=== PATIENT | female | born 1960 | race Caucasian/White ===

== ENCOUNTER 2017-05-05 18:33 | Observation (INO) ==
[2017-05-05] MEDS ORDERED: *HR* OxyCODONE/APAP 5/325 TABLET PO ONE (19:26)
[2017-05-05] MEDS ORDERED: Aspirin 81 MG TAB.CHEW PO STA (19:31)
--- NOTE | 2017-05-05 19:57 | Emergency Department Note ---
Disposition Clinical Impression: Palpitations, Bigeminy Disposition: Admitted As Inpatient Condition: Fair Referrals: Blanquita Mckeon CNP [Primary Care Provider] - Forms: ED Satisfaction Letter Time of Disposition: 20:59 Arrhythmia/Palpitations HPI - General Chief Complaint: ED Arrhythmia/Palpitations Stated Complaint: irregular heatbeat Time Seen by Provider: 05/05/17 18:48 Source: patient, family Limitations: no limitations Nursing Notes Reviewed: Yes Vital Signs Reviewed: Yes - History of Present Illness HPI Narrative: 57-year-old female history of hypertension, hyperlipidemia, diabetes, recent pneumonia and urinary tract infection, presents after an episode of palpitations , her home health nurse found her in to be an irregular rhythm. EMS brought her in state that she is in bigeminy. Patient reports some lightheadedness, but she denies any chest pain, shortness of breath. Patient states that she is recently completed her antibiotics for urinary tract infection. She also recent right ankle fracture. It is in a ankle brace. Patient denies hemoptysis , leg swelling, she denies history of pulmonary embolus Pt Subjective Complaint: rapid heart beat, "skipped beats" Onset (ago): unknown Duration: intermittent Severity: mild Context: occurred during rest Arrhythmia History: other (Tachycardia) Associated symptoms: Denies: denies other symptoms, chest pain, shortness of breath, anxiety, diaphoresis - Related Data Allergies Allergy/AdvReac Type Severity Reaction Status Date / Time Latex, Natural Rubber Allergy Rash Verified 10/29/16 14:44 metronidazole [From Flagyl] Allergy Rash Verified 05/05/17 19:54 vancomycin Allergy Swelling Verified 05/05/17 19:54 of the Eye Zolpidem [From Ambien] Allergy Hives Verified 10/29/16 14:44 All systems ED: reviewed and negative except as stated. Review of Systems: As Per HPI Constitutional: Denies: fever, chills Eyes: Denies: eye pain ENT ED: Denies: ear pain Cardiovascular: Reports: as per HPI, palpitations. Denies: chest pain, dyspnea on exertion, paroxysmal nocturnal dyspnea Respiratory: Denies: cough, dyspnea Gastrointestinal: Denies: abdominal pain, nausea Genitourinary: Denies: urgency, dysuria Musculoskeletal: Denies: back pain, neck pain Integumentary: Denies: rash, abrasion Neurological: Denies: headache, weakness Past Medical History - Past Medical History Attestation: Yes The following information was validated with the patient. Medical history: Reports: COPD, diabetes, GERD, hyperlipidemia, hypertension Psychiatric history: Reports: depression - Social History Smoking Status: Current every day smoker Smokeless Tobacco Status: No Alcohol use: Reports: none Drug use: Reports: none Physical Exam Constitutional: NAD,HTN, Eyes: PERRLA, sclera anicteric ENT & Mouth: MM dry Neck: normal inspection, neck is supple Resp: CTA bilaterally, no resp distress CV: irregular rhythm GI: normal inspection, soft, no guarding or rigidity Neuro: A&O3, CNII-XII grossly intact, COVARRUBIAS MSK: Right ankle in brace, no pedal edema, good ROM left Lower extremity Skin: on limited exam, skin intact with no rashes or lesions - General Limitations: no limitations General appearance: alert Course Course Narrative: 57-year-old female with what appears to be bigeminy on her EKG no other ischemic changes, will get CBC BMP troponin likely admission for irregular rhythm. - Reevaluation(s) Reevaluation #1: Patient's troponin was negative given age and risk factors, admitted to the hospitalist service Dr Pink Time: 21:00 Vital Signs Temperature 98.9 F 05/05/17 18:42 Pulse Rate 68 05/05/17 18:42 Respiratory Rate 20 05/05/17 18:42 Blood Pressure 182/81 05/05/17 18:42 O2 Sat by Pulse Oximetry 94 05/05/17 18:42 Temperature 98.9 F 05/05/17 18:42 Pulse Rate 68 05/05/17 18:42 Respiratory Rate 20 05/05/17 18:42 Blood Pressure 182/81 05/05/17 18:42 O2 Sat by Pulse Oximetry 97 05/05/17 18:57 Oxygen Delivery Oxygen Delivery Room Air Arrhythmia/Palpitations - Differential Diagnosis Differential Diagnosis: Likely: palpitations, anxiety, ventricular premature beats - Medical Records Medical records reviewed: Yes I reviewed the patient's medical records. - Lab Data Lab results reviewed: Yes I reviewed the patient's lab results. Result diagrams: 05/05/17 19:39 05/05/17 19:39 Lab Results 05/05/17 05/05/17 05/05/17 Range/Units 19:39 19:39 19:39 WBC 9.1 (4.3-11.1) K/mcL RBC 4.20 (3.82-4.97) M/mcL Hgb 12.8 (11.5-15.4) g/dL Hct 38.5 (35.3-44.9) % MCV 91.7 (83.0-100.0) fL MCH 30.5 (28.0-33.3) pg MCHC 33.2 (31.6-35.5) g/dL RDW 12.3 (11.5-14.5) % Plt Count 246 (140-400) K/mcL MPV 11.1 (9.4-12.4) fL Immature Gran % 0.7 (0-4) % Seg Neutrophils % 47.2 % Lymphocytes % 42.3 % Monocytes % 9.0 % Eosinophils % 0.1 % Basophils % 0.7 % Neutrophils # 4.3 (1.6-8.9) K/mcL Lymphocytes # 3.8 (0.6-4.6) K/mcL Monocytes # 0.8 (0.0-1.3) K/mcL Eosinophils # 0.0 (0.0-0.6) K/mcL Basophils # 0.1 (0.0-0.2) K/mcL PT 12.2 H (9.4-12.1) Seconds INR 1.1 APTT 35.9 (26.0-36.0) Seconds Sodium 137 (136-145) mEq/L Potassium 3.5 (3.5-5.1) mEq/L Chloride 107 (98-107) mEq/L Carbon Dioxide 24 (23-29) mEq/L BUN 12 (6-20) mg/dL Creatinine 0.66 (0.60-1.20) mg/dL Est GFR ( Amer) > 60 (> 60) Est GFR (Non-Af Amer) > 60 (> 60) BUN/Creatinine Ratio 18 (6-26) Glucose 94 (70-105) mg/dL Calculated Osmolality 284 (280-300) Calcium 8.5 L (8.6-10.3) mg/dL Magnesium 1.2 L (1.6-2.6) mg/dL Total Bilirubin 0.2 L (0.3-1.0) mg/dL AST 12 L (13-39) Units/L ALT 10 (7-52) Units/L Alkaline Phosphatase 78 (34-104) Units/L Troponin I (< 0.04) ng/mL Serum Total Protein 5.9 L (6.4-8.9) g/dL Albumin 3.4 L (3.5-5.7) g/dL Globulin 2.5 (2.4-3.5) g/dL Albumin/Globulin Ratio 1.4 (1.1-2.2) 05/05/17 Range/Units 19:39 WBC (4.3-11.1) K/mcL RBC (3.82-4.97) M/mcL Hgb (11.5-15.4) g/dL Hct (35.3-44.9) % MCV (83.0-100.0) fL MCH (28.0-33.3) pg MCHC (31.6-35.5) g/dL RDW (11.5-14.5) % Plt Count (140-400) K/mcL MPV (9.4-12.4) fL Immature Gran % (0-4) % Seg Neutrophils % % Lymphocytes % % Monocytes % % Eosinophils % % Basophils % % Neutrophils # (1.6-8.9) K/mcL Lymphocytes # (0.6-4.6) K/mcL Monocytes # (0.0-1.3) K/mcL Eosinophils # (0.0-0.6) K/mcL Basophils # (0.0-0.2) K/mcL PT (9.4-12.1) Seconds INR APTT (26.0-36.0) Seconds Sodium (136-145) mEq/L Potassium (3.5-5.1) mEq/L Chloride (98-107) mEq/L Carbon Dioxide (23-29) mEq/L BUN (6-20) mg/dL Creatinine (0.60-1.20) mg/dL Est GFR ( Amer) (> 60) Est GFR (Non-Af Amer) (> 60) BUN/Creatinine Ratio (6-26) Glucose (70-105) mg/dL Calculated Osmolality (280-300) Calcium (8.6-10.3) mg/dL Magnesium (1.6-2.6) mg/dL Total Bilirubin (0.3-1.0) mg/dL AST (13-39) Units/L ALT (7-52) Units/L Alkaline Phosphatase (34-104) Units/L Troponin I < 0.03 (< 0.04) ng/mL Serum Total Protein (6.4-8.9) g/dL Albumin (3.5-5.7) g/dL Globulin (2.4-3.5) g/dL Albumin/Globulin Ratio (1.1-2.2) - Radiology Data Radiology results reviewed: Yes I reviewed the patient's radiology results. Chest X-Ray 05/05/17 19:12 IMPRESSION: No acute process. D/ / Ilan Harris MD / Ilan Harris MD Interpreting Provider: Ilan Harris MD - EKG Data EKG attestation: Yes I reviewed and interpreted this EKG. EKG shows normal: sinus rhythm Rate: normal (Rhythm of 84, bigeminy, intermittent PVCs every other beat.) Rhythm: PVC's Interpretation: nonspecific ST-T wave changes - Core Measures AMI Core Measures Followed: Yes Attestation Statement - Attestation Attestation: I, Peter Olivo DO, examined this patient [id number] and my medical decision-making was reviewed with Dr. Aly Dodson, Resident Physician. I agree with the documented findings, disposition and treatment plan as described except to the extent set forth below. Please see my progress notes for details. Patient presents emergency room for evaluation of palpitations. She was just discharged from an outside facility for treatment of pneumonia. She denies any new medications or changes in medications over the last several days. Patient denies any trauma or injury. Patient denies any chest pain at this time no nausea vomiting or diarrhea. No fevers or chills. No chest pain shortness of breath headache or vision changes. Her main complaint is palpitations. Patient is resting comfortably in bed at this time. EKG shows what appears to be bigeminy. There is a caddo beat that is directly followed by ventricular premature complex. Patient will be evaluated for left foot abnormality infectious pathology and then admission process will be completed. No other acute issues noted at this time. I asked him to be given. Patient has multiple comorbidities including hypertension hyperlipidemia COPD and acid reflux along with diabetes. Vital signs otherwise are unremarkable in presentation except for hypertension. Patient is otherwise stable. No critical care part of this patient during the treatment course. See detailed documentation of physical exam, medical intervention, medical decision-making and disposition resident physician's note. 2039 Patient found to have negative workup at this time labs are otherwise unremarkable. Bigeminy has been persistent with unknown etiology. Patient will be admitted to the hospital at this time for definitive management of unknown etiology to her cardiac arrhythmia.
[2017-05-05 20:07] LABS: Basophils # 0.1 K/mcL (0.0-0.2); Basophils % 0.7 %; Eosinophils % 0.1 %; Hematocrit 38.5 % (35.3-44.9); Hemoglobin 12.8 g/dL (11.5-15.4); Immature Granulocytes % 0.7 % (0-4); Lymphocytes # 3.8 K/mcL (0.6-4.6); Lymphocytes % 42.3 %; Mean Corpuscular HGB Conc 33.2 g/dL (31.6-35.5); Mean Corpuscular Hemoglobin 30.5 pg (28.0-33.3); Mean Corpuscular Volume 91.7 fL (83.0-100.0); Mean Platelet Volume 11.1 fL (9.4-12.4); Monocytes # 0.8 K/mcL (0.0-1.3); Neutrophils # 4.3 K/mcL (1.6-8.9); Platelet Count 246 K/mcL (140-400); Red Cell Distribution Width 12.3 % (11.5-14.5); Segmented Neutrophils % 47.2 %
[2017-05-05 20:16] LABS: INR 1.1; Prothrombin Time 12.2 Seconds (9.4-12.1)
[2017-05-05 20:19] LABS: Activated Partial Thrombo Time 35.9 Seconds (26.0-36.0)
[2017-05-05 20:20] LABS: Alanine Aminotransferase 10 Units/L (7-52); Albumin 3.4 g/dL (3.5-5.7); Albumin/Globulin Ratio 1.4 (1.1-2.2); Alkaline Phosphatase 78 Units/L (34-104); Aspartate Amino Transferase 12 Units/L (13-39); BUN/Creatinine Ratio 18 (6-26); Bilirubin,Total 0.2 mg/dL (0.3-1.0); Blood Urea Nitrogen 12 mg/dL (6-20); Calcium 8.5 mg/dL (8.6-10.3); Carbon Dioxide 24 mEq/L (23-29); Chloride 107 mEq/L (98-107); Globulin 2.5 g/dL (2.4-3.5); Glucose 94 mg/dL (70-105); Magnesium 1.2 mg/dL (1.6-2.6); Osmolality,Calculated 284 (280-300); Potassium 3.5 mEq/L (3.5-5.1); Sodium 137 mEq/L (136-145); Total Protein 5.9 g/dL (6.4-8.9); eGFR For African Americans > 60 (> 60); eGFR For Non-African Americans > 60 (> 60)
[2017-05-05 20:44] LABS: Bilirubin,Urine Negative (Negative); Blood,Urine Trace (Negative); Clarity,Urine Clear (Clear); Color,Urine Yellow (Yellow); Glucose,Urine (UA) Normal (Normal); Ketones,Urine Negative (Negative); Leukocyte Esterase,Urine Negative (Negative); Nitrite,Urine Negative (Negative); PH,Urine 6.5 pH Units (5.0-8.0); Protein,Urine Negative (Neg-Trace); Specific Gravity,Urine 1.009 (1.010-1.025); Urobilinogen,Urine Normal (Normal)
[2017-05-05 20:46] LABS: Bacteria,Urine None Seen per hpf (None-Few); Hyaline Casts,Urine None Seen per lpf (None-Few); RBC,Urine 0-3 per hpf (0-3); Squamous Epithelial Cell,Urine Many per lpf (None-Few); WBC,Urine 0-3 per hpf (0-3)
[2017-05-05 20:53] LABS: Thyroid Stimulating Hormone 2.015 mcIU/mL (0.340-5.600)
[2017-05-05] MEDS ORDERED: Naloxone 0.4 MG/ML INJ IVP PRN (23:41)
[2017-05-05] MEDS ORDERED: Ondansetron ODT 4 MG TAB.RAPDIS SL PRN (23:41)
[2017-05-05] MEDS ORDERED: Acetaminophen 325 MG TABLET PO PRN (23:41)
[2017-05-05] MEDS ORDERED: NON-FORMULARY MEDICATION 1 EACH EACH (Oxygen [Oxygen] 2 L) NS SCH (23:45)
[2017-05-05] MEDS ORDERED: *HR* Metformin 500 MG TABLET PO SCH (23:45)
[2017-05-06] MEDS ORDERED: D5% in Water 1,000 ML IVC PRN (00:48)
[2017-05-06] MEDS ORDERED: Dextrose Gel 15 GM PO PRN ×2 (00:48)
[2017-05-06] MEDS ORDERED: *HR* Dextrose 50 % in Water (Syg) 50 ML SYRINGE IVP PRN (00:48)
[2017-05-06] MEDS: *HR* Heparin 5,000 UNIT/ML VIAL SQ SCH ×4 (01:00→22:41)
[2017-05-06] MEDS: Melatonin 3 MG TABLET PO SCH ×2 (01:02→22:41)
[2017-05-06] MEDS: (Anoro Ellipta 62.5-2) IH SCH ×2 (01:02→08:55)
[2017-05-06] MEDS: (Liraglutide [Victoza 2-Pak] 1.2 MG) SQ SCH ×2 (01:02→08:55)
[2017-05-06] MEDS: Gabapentin 400 MG CAPSULE PO SCH ×5 (01:02→22:41)
[2017-05-06] MEDS: *HR* HYDROcodone/Acet 5/325 mg TABLET PO PRN ×3 (01:02→11:46)
[2017-05-06] MEDS: Insulin LISPRO 300 UNITS/3 ML VIAL SQ SCH ×5 (01:11→22:42)
[2017-05-06 03:38] LABS: Basophils # 0.1 K/mcL (0.0-0.2); Basophils % 0.7 %; Hematocrit 39.3 % (35.3-44.9); Hemoglobin 12.8 g/dL (11.5-15.4); Immature Granulocytes % 0.7 % (0-4); Lymphocytes # 3.5 K/mcL (0.6-4.6); Lymphocytes % 43.8 %; Mean Corpuscular HGB Conc 32.6 g/dL (31.6-35.5); Mean Corpuscular Hemoglobin 30.1 pg (28.0-33.3); Mean Corpuscular Volume 92.5 fL (83.0-100.0); Mean Platelet Volume 11.2 fL (9.4-12.4); Monocytes # 0.7 K/mcL (0.0-1.3); Monocytes % 8.5 %; Neutrophils # 3.7 K/mcL (1.6-8.9); Platelet Count 214 K/mcL (140-400); Red Blood Count 4.25 M/mcL (3.82-4.97); Red Cell Distribution Width 12.3 % (11.5-14.5); Segmented Neutrophils % 46.3 %
[2017-05-06 03:46] LABS: Hemoglobin A1C 5.9 %
[2017-05-06 04:08] LABS: BUN/Creatinine Ratio 14 (6-26); Blood Urea Nitrogen 10 mg/dL (6-20); Calcium 8.5 mg/dL (8.6-10.3); Carbon Dioxide 26 mEq/L (23-29); Chloride 108 mEq/L (98-107); Glucose 134 mg/dL (70-105); Magnesium 1.2 mg/dL (1.6-2.6); Osmolality,Calculated 297 (280-300); Potassium 3.6 mEq/L (3.5-5.1); Sodium 143 mEq/L (136-145); eGFR For African Americans > 60 (> 60); eGFR For Non-African Americans > 60 (> 60)
--- NOTE | 2017-05-06 05:11 | Event Note ---
Date of Encounter: 05/06/17 Time of Encounter: 05:07 I examined this patient and my medical decision-making was reviewed with the Resident Physician. I agree with the documented findings, disposition and treatment plan as described except to the extent set forth below: 57 year old female recently treated for pneumonia presented for palpitations. She denies any chest pain, shortness of breath, n/v, diaphoresis. She drinks 1- 2 soda beverages, no coffee, is tobacco user but has not smoked recently because of recent pneumonia. Chest x-ray showed no acute process. EKG showed sinus rhythm with bigemini at normal rate without ST/T wave changes. She is already on metoprolol 50 mg BID at home for palpitations. She denies anxiety. Telemetry monitoring currently shows patient sinus with bigemini at 70 bpm. TSH checked and is within normal limits. Follow-up with echocardiogram.
--- NOTE | 2017-05-06 06:46 | Internal Med History&Physical ---
<Chico Joshua - Last Filed: 05/06/17 07:36> Date of Encounter: 05/06/17 Time of Encounter: 03:00 Assessment and Plan (1) Bigeminy Current visit: Yes Status: Acute Pt asymptomatic. Incidentally found by home health aide, no past workup. No recent stimulant use. Recent PNA/UTI, however s/p complete abx regimen. No recent respiratory distress. Chronicity unknown. Limited echo ordered. On telemetry. Continue metoprolol. (2) Type 2 diabetes mellitus Current visit: Yes Status: Acute Type 2 DM well controlled on Victoza, Metformin. On SSI in-patient. Qualifiers: Diabetes mellitus complication status: without complication Diabetes mellitus care home insulin use: without terminal operations supervisor use Qualified Code(s): E11.9 - Type 2 diabetes mellitus without complications (3) DVT prophylaxis Current visit: Yes Status: Acute SQ Heparin Internal Medicine - H&P: HPI Chief complaint: Palpitations Admitted From: Home Plans for Post Hospital Care: Home History of present illness: Ms. Gomez is a 57 year old female H DM2, who presents with 1 day onset of incidental finding of irregular rhythm by home health aid. Patient was recently treated for PNA/UTI at [place]. Pt reports no telemetry or ECG performed to her knowledge there. Pt currently feels asymptomatic, denying dizziness, syncope, or the sensation of palpitations. No recent stimulant, caffeine intake. ECG shows bigeminy, no ST elevation/depression. Past Med Surg Social Fam HX - Past Medical History Medical history: COPD, diabetes, GERD, hyperlipidemia, hypertension Psychiatric history: depression - Social History Smoking Status: Current every day smoker Smokeless Tobacco Status: No Alcohol use: none Drug use: none Internal Medicine - H&P: Meds Albuterol Sulfate [Proair Hfa] 2 puff IH Q4H PRN 05/05/17 [History] Aspirin Enteric Coated [Aspirin EC] 325 mg PO DAILY 05/05/17 [History] Celecoxib [Celebrex] 200 mg PO DAILY 05/05/17 [History] Cholecalciferol (D-3) [Vitamin D] 5,000 unit PO DAILY 05/05/17 [History] Dicyclomine [Bentyl] 20 mg PO QID 05/05/17 [History] Escitalopram [Lexapro] 10 mg PO DAILY 05/05/17 [History] Esomeprazole Magnesium [Nexium] 40 mg PO DAILY 05/05/17 [History] Estradiol [Estrace] 1 appl VG AD 05/05/17 [History] Famotidine [Heartburn Prevention] 20 mg PO HS 05/05/17 [History] Furosemide [Lasix] 20 mg PO DAILY 05/05/17 [History] Gabapentin [Neurontin] 800 mg PO QID 05/05/17 [History] Liraglutide [Victoza 2-Sky] 1.2 mg SQ DAILY 05/05/17 [History] Lisinopril/Hydrochlorothiazide [Zestoretic 10-12.5 mg Tablet] 1 each PO DAILY [History] Loratadine [Claritin] 10 mg PO DAILY 05/05/17 [History] Melatonin 5 mg PO HS 05/05/17 [History] Metformin HCl [Metformin HCl ER] 1,000 mg PO BID 05/05/17 [History] Metoprolol [Lopressor] 50 mg PO BID 05/05/17 [History] Oxycodone HCl/Acetaminophen [Percocet 7.5-325 mg Tablet] 1 each PO Q8H PRN 05/05 [History] Oxygen 2 l NS AD 05/05/17 [History] Rosuvastatin [Crestor] 20 mg PO HS 05/05/17 [History] Trospium Chloride 20 mg PO BID 05/05/17 [History] Umeclidinium Brm/Vilanterol Tr [Anoro Ellipta 62.5-25 Mcg INH] 1 each IH DAILY 05/05/17 [History] 3 Allergy/AdvReac Type Severity Reaction Status Date / Time Latex, Natural Rubber Allergy Rash Verified 10/29/16 14:44 metronidazole [From Flagyl] Allergy Rash Verified 05/05/17 19:54 vancomycin Allergy Swelling Verified 05/05/17 19:54 of the Eye Zolpidem [From Ambien] Allergy Hives Verified 10/29/16 14:44 All Systems PM: A 10-system review of systems was performed and is negative for pertinent findings except as documented above in the HPI. - Constitutional Vitals: Temp Pulse Resp BP Pulse Ox 98.1 F 66 16 125/65 94 05/06/17 04:00 05/06/17 04:00 05/06/17 04:42 05/06/17 04:00 05/06/17 04:42 General appearance: Present: A&O X 3, no acute distress - Head Head exam: Present: normal inspection, normocephalic - Neck Neck exam general surgery: Present: normal inspection, supple. Absent: thyromegaly - Cardiovascular Cardiovascular exam: Present: irregular rhythm, +S1, +S2. Absent: JVD, systolic murmur - GI/Abdominal GI/Abdominal exam: Present: no peritoneal signs - Neurological Exam Neurological exam: Present: no focal deficits. Absent: facial droop, speech deficit Internal Med - H&P Results - Labs CBC & Chem 7: 05/06/17 02:45 05/06/17 02:45 Labs: Short CBC 05/06/17 Range/Units 02:45 WBC 8.1 (4.3-11.1) K/mcL Hgb 12.8 (11.5-15.4) g/dL Hct 39.3 (35.3-44.9) % Plt Count 214 (140-400) K/mcL Neutrophils # 3.7 (1.6-8.9) K/mcL BMP 05/06/17 02:45 Sodium 143 Potassium 3.6 Chloride 108 H Carbon Dioxide 26 BUN 10 Creatinine 0.72 Glucose 134 H Calcium 8.5 L <Ranulfo Field - Last Filed: 05/06/17 08:43> Date of Encounter: 05/06/17 Internal Medicine - H&P: HPI History of present illness: Ms. Gomez is a 57 year old female All Systems PM: A 10-system review of systems was performed and is negative for pertinent findings except as documented above in the HPI. - Constitutional Vitals: Temp Pulse Resp BP Pulse Ox 98.4 F 74 18 133/71 97 05/06/17 07:13 05/06/17 07:13 05/06/17 08:22 05/06/17 07:13 05/06/17 08:22 Internal Med - H&P Results - Labs CBC & Chem 7: 05/06/17 02:45 05/06/17 02:45 Labs: Short CBC 05/06/17 Range/Units 02:45 WBC 8.1 (4.3-11.1) K/mcL Hgb 12.8 (11.5-15.4) g/dL Hct 39.3 (35.3-44.9) % Plt Count 214 (140-400) K/mcL Neutrophils # 3.7 (1.6-8.9) K/mcL [facility] 05/06/17 02:45 Sodium 143 Potassium 3.6 Chloride 108 H Carbon Dioxide 26 BUN 10 Creatinine 0.72 Glucose 134 H Calcium 8.5 L
[2017-05-06] MEDS ORDERED: Naloxone 0.4 MG/ML INJ IVP PRN (07:32)
--- NOTE | 2017-05-06 08:43 | Electrocardiograph Report ---
[place] [id number] Test Date: 2017-05-05 Pat Name: Nathalie Gomez Department: 102 Room: [id number] Gender: F Vat Skimmer: Martha : 1960 Requested By: Shantell Alexander Order Number: [id number] Reading MD: Marcio Haskins DO Measurements Intervals Russell Rate: 80 P: 47 NE: 142 QRS: 32 QRSD: 127 T: 48 QT: 431 QTc: 467 Interpretive Statements SINUS RHYTHM WITH FREQUENT VENTRICULAR PREMATURE COMPLEXES IN A BIGEMINAL PATTERN POSSIBLE LEFT ATRIAL ENLARGEMENT RIGHT BUNDLE BRANCH BLOCK Electronically Signed On 05-06-2017 8:41:47 EST by Marcio Haskins DO
[2017-05-06] MEDS: Cholecalciferol (D-3) 1,000 UNIT TABLET PO SCH (08:54)
[2017-05-06] MEDS ORDERED: Ketorolac 15 MG/ML VIAL IVP STA (13:46)
[2017-05-06 14:58] LABS: VBG Ionized Calcium 1.14 mmol/L (1.15-1.35)
[2017-05-06] MEDS ORDERED: Magnesium Sulfate 2 GM in D5% in Water 100 ML IVPB ONE (15:11)
[2017-05-06] MEDS ORDERED: Calcium Gluconate 2,000 MG in 0.9 % Sodium Chloride 50 ML IVPB ONE (15:12)
[2017-05-06] MEDS: *HR* OxyCODONE/APAP 7.5/325 TABLET PO PRN (16:10)
--- NOTE | 2017-05-06 19:02 | Event Note ---
Date of Encounter: 05/06/17 Time of Encounter: 11:00 Echo ordered and cardiology consulted
[2017-05-07] MEDS: *HR* OxyCODONE/APAP 7.5/325 TABLET PO PRN ×2 (00:42→09:27)
[2017-05-07] MEDS: *HR* Heparin 5,000 UNIT/ML VIAL SQ SCH (05:48)
[2017-05-07] MEDS: Insulin LISPRO 300 UNITS/3 ML VIAL SQ SCH ×2 (08:13→16:33)
[2017-05-07] MEDS: Gabapentin 400 MG CAPSULE PO SCH (08:13)
[2017-05-07] MEDS: Cholecalciferol (D-3) 1,000 UNIT TABLET PO SCH (08:13)
[2017-05-07 10:06] LABS: Basophils # 0.1 K/mcL (0.0-0.2); Basophils % 0.8 %; Hematocrit 37.1 % (35.3-44.9); Hemoglobin 12.5 g/dL (11.5-15.4); Immature Granulocytes % 0.5 % (0-4); Lymphocytes # 2.4 K/mcL (0.6-4.6); Lymphocytes % 36.8 %; Mean Corpuscular HGB Conc 33.7 g/dL (31.6-35.5); Mean Corpuscular Hemoglobin 30.8 pg (28.0-33.3); Mean Corpuscular Volume 91.4 fL (83.0-100.0); Mean Platelet Volume 11.3 fL (9.4-12.4); Monocytes # 0.5 K/mcL (0.0-1.3); Neutrophils # 3.6 K/mcL (1.6-8.9); Platelet Count 197 K/mcL (140-400); Red Blood Count 4.06 M/mcL (3.82-4.97); Red Cell Distribution Width 12.2 % (11.5-14.5); Segmented Neutrophils % 53.9 %
[2017-05-07 10:23] LABS: BUN/Creatinine Ratio 16 (6-26); Blood Urea Nitrogen 13 mg/dL (6-20); Calcium 8.8 mg/dL (8.6-10.3); Carbon Dioxide 28 mEq/L (23-29); Chloride 102 mEq/L (98-107); Glucose 197 mg/dL (70-105); Osmolality,Calculated 290 (280-300); Sodium 137 mEq/L (136-145); eGFR For African Americans > 60 (> 60); eGFR For Non-African Americans > 60 (> 60)
[2017-05-07 11:16] LABS: Magnesium 1.5 mg/dL (1.6-2.6)
--- NOTE | 2017-05-07 12:07 | Cardiology Consult Note ---
<Nuria Esquivel - Last Filed: 05/07/17 12:19> Date of Encounter: 05/07/17 Time of Encounter: 09:30 Assessment and Plan (1) Hypomagnesemia Status: Acute Per cardiology: -Mg 1.2, replaced per primary service. -Today 1.5, rider ordered. -Mg rider ordered. -Can consider nephrology consult. (2) Bigeminy Status: Acute Per cardiology: -reports history of palpitations/fluttering. -On beta galdino. BP 90-110s systolic. -Mg 1.2 on admission. -Know LEXII, non-complait with CPAP. -intermittent bigeminy noted on telemetry. -Denies any symptoms besides occasional fluttering. -States she feels great. -TTE with LVEF 60%, midl concentric LVH, no segmental wall motion abnormalities. -Previous stress 2015 negative for ischemia or infarct. -Will stop karol/HCTZ combo to allow BP room to increase beta galdino. -Mg replaced. -Will attempt to titrate beta galdino once BP will allow. -Recommend compliance with CPAP. (3) Obstructive sleep apnea Status: Chronic Per cardiology: -Known LEXII. -Has CPAP at home, however reports has not been wearing due to mask was "chewed up by dog." -Patient reports she is trying to obtain new CPAP mask. -Recommend compliance with CPAP. Discussion w patient/family: The assessment and plan as outlined above was discussed with the patient and/or family members who expressed understanding and agreement. All questions were answered. Thank you for involving us in the care of your patient. Please call with any questions. Discussed and reviewed with . History of Present Illness Consult date: 05/06/17 Requesting physician: Caleb Solis Consult reason: bigeminey Chief complaint: "HR low" History of present illness: Ms. Gomez is a 57 year old female with a relevant past medical history of HTN , GERD, DM, COPD, LEXII CPAP. Patient states she was recently treated for pneumonia and also broke her ankle and underwent surgery. Patient states that she has had home health nurse since her recent surgery and states her nurse took her vital signs and stated her HR was 30. Patient states she felt fine. Denies chest pain, shortness of breath, or increased fatigue. Patient reports that she had some fluttering, but states that she wasn't having more than usual. Denies dizziness or lightheadedness. Past Med Surg Social Fam HX - Past Medical History Attestation: Yes The following information was validated with the patient. Source: patient, old records reviewed Medical history: COPD, diabetes, GERD, hyperlipidemia, hypertension Psychiatric history: depression - Social History Smoking Status: Current every day smoker Smokeless Tobacco Status: No Alcohol use: none Drug use: none Medications and Allergies Albuterol Sulfate [Proair Hfa] 2 puff IH Q4H PRN 05/05/17 [History] Aspirin Enteric Coated [Aspirin EC] 325 mg PO DAILY 05/05/17 [History] Celecoxib [Celebrex] 200 mg PO DAILY 05/05/17 [History] Cholecalciferol (D-3) [Vitamin D] 5,000 unit PO DAILY 05/05/17 [History] Dicyclomine [Bentyl] 20 mg PO QID 05/05/17 [History] Escitalopram [Lexapro] 10 mg PO DAILY 05/05/17 [History] Esomeprazole Magnesium [Nexium] 40 mg PO DAILY 05/05/17 [History] Estradiol [Estrace] 1 appl VG AD 05/05/17 [History] Famotidine [Heartburn Prevention] 20 mg PO HS 05/05/17 [History] Furosemide [Lasix] 20 mg PO DAILY 05/05/17 [History] Gabapentin [Neurontin] 800 mg PO QID 05/05/17 [History] Liraglutide [Victoza 2-Sky] 1.2 mg SQ DAILY 05/05/17 [History] Loratadine [Claritin] 10 mg PO DAILY 05/05/17 [History] Melatonin 5 mg PO HS 05/05/17 [History] Metformin HCl [Metformin HCl ER] 1,000 mg PO BID 05/05/17 [History] Metoprolol [Lopressor] 50 mg PO BID 05/05/17 [History] Oxycodone HCl/Acetaminophen [Percocet 7.5-325 mg Tablet] 1 each PO Q8H PRN 05/05 [History] Oxygen 2 l NS AD 05/05/17 [History] Rosuvastatin [Crestor] 20 mg PO HS 05/05/17 [History] Trospium Chloride 20 mg PO BID 05/05/17 [History] Umeclidinium Brm/Vilanterol Tr [Anoro Ellipta 62.5-25 Mcg INH] 1 each IH DAILY 05/05/17 [History] 3 Allergy/AdvReac Type Severity Reaction Status Date / Time Latex, Natural Rubber Allergy Rash Verified 10/29/16 14:44 metronidazole [From Flagyl] Allergy Rash Verified 05/05/17 19:54 vancomycin Allergy Swelling Verified 05/05/17 19:54 of the Eye Zolpidem [From Ambien] Allergy Hives Verified 10/29/16 14:44 All Systems Review: A 10-system review of systems was performed and is negative for pertinent findings except as documented above in the HPI. - Cardiovascular Cardiovascular: as per HPI, palpitations, slow heart rate Physical Examination Vital Signs, Last 4 Hours Temp Pulse Resp BP Pulse Ox 05/07/17 11:12 16 94 05/07/17 10:57 98.3 F 74 14 115/96 89 05/07/17 08:09 14 91 General: Conversant, No Apparent Distress HEENT: Atraumatic, Normocephaly, Mucus Membranes Moist Neck: No JVD, Normal carotid pulses Cardiac: Reg Rate and Rhythm, Normal S1 and S2, No Murmur Lungs: Normal Breath Sounds, No Wheeze, Rales, Rhonchi Neuro: Alert and responsive, No focal deficits noted Abdomen: Soft, Non-Tender Skin: No rashes noted on visualized skin Musculoskeletal: No Chest Wall Tenderness Extremities: No Clubbing, No Cyanosis, No Edema, Normal Pulses Results 05/07/17 09:52 05/07/17 09:52 Lab Results Active Medications Acetaminophen (Tylenol) 650 mg PO Q6HR PRN PRN Reason: Mild Pain (1-3) Stop: 11/04/17 23:42 Last Admin: 05/07/17 05:48 Dose: 650 mg Albuterol Sulfate (Albuterol Inhaler) 2 puff IH [id number] [facility] Stop: 11/05/17 00:01 Last Admin: 05/07/17 11:10 Dose: 2 puff Dextrose/Water (Dextrose 50% (Syg)) 25 ml IVP AD PRN PRN Reason: Hypoglycemia Stop: 11/05/17 00:49 Gabapentin (Neurontin) 800 mg PO QID [facility] Stop: 11/04/17 23:46 Last Admin: 05/07/17 08:13 Dose: 800 mg Glucagon (Glucagen) 1 mg IM ONCE PRN PRN Reason: Hypoglycemia Stop: 11/05/17 00:49 Glucose (Gluctose) 15 gm PO ONCE PRN PRN Reason: Hypoglycemia Stop: 11/05/17 00:49 Glucose (Gluctose) 30 gm PO ONCE PRN PRN Reason: Hypoglycemia Stop: 11/05/17 00:49 Heparin Sodium (Porcine) (Heparin) 5,000 unit SQ Q8HCO [facility] Stop: 11/04/17 23:46 Last Admin: 05/07/17 05:48 Dose: 5,000 unit Dextrose (Dextrose 5%) 1,000 mls @ 100 mls/hr IVC .Q10H PRN PRN Reason: HYPOGLYCEMIA Stop: 11/05/17 00:49 Magnesium Sulfate (Magnesium Sulfate Premix 2gm/50ml) 2 gm in 50 mls @ 50 mls/ hr IVPB ONCE ONE Stop: 05/07/17 12:58 Insulin Human Lispro (Humalog) 0 units SQ HS [facility] PRN Reason: Protocol Stop: 11/05/17 01:01 Last Admin: 05/06/17 22:42 Dose: Not Given Insulin Human Lispro (Humalog) 0 units SQ TIDAC [facility] PRN Reason: Protocol Stop: 11/05/17 07:31 Last Admin: 05/07/17 08:13 Dose: Not Given Melatonin (Melatonin) 6 mg PO HS [facility] Stop: 11/04/17 23:46 Last Admin: 05/06/17 22:41 Dose: 6 mg Metoprolol Tartrate (Lopressor) 50 mg PO BID [facility] Stop: 11/04/17 23:46 Last Admin: 05/07/17 08:13 Dose: 50 mg Naloxone HCl (Narcan) 0.4 mg IVP Q2MIN PRN PRN Reason: Opioid Reversal Stop: 11/04/17 23:42 Naloxone HCl (Narcan) 0.4 mg IVP Q2MIN PRN PRN Reason: Opioid Reversal Stop: 11/05/17 07:33 Ondansetron HCl (Zofran Odt) 4 mg SL Q8HR PRN PRN Reason: Nausea And Vomiting Stop: 11/04/17 23:42 Oxybutynin Chloride (Ditropan) 5 mg PO TID [facility] Stop: 11/04/17 23:46 Last Admin: 05/07/17 08:13 Dose: 5 mg Oxycodone/Acetaminophen (Percocet 7.5/325) 1 each PO Q8H PRN PRN Reason: MODERATE TO SEVERE PAIN Stop: 11/05/17 15:14 Last Admin: 05/07/17 09:27 Dose: 1 each Rosuvastatin Calcium (Crestor) 20 mg PO HS [facility] Stop: 11/04/17 23:46 Last Admin: 05/06/17 22:41 Dose: 20 mg Vitamin D (Vitamin D) 1,000 unit PO DAILY [facility] Stop: 11/05/17 09:01 Last Admin: 05/07/17 08:13 Dose: 1,000 unit Laboratory Tests 05/05/17 05/06/17 05/07/17 19:39 02:45 09:52 Hgb 12.5 Potassium Creatinine Magnesium 1.2 L 1.2 L TSH 2.015 05/07/17 09:52 Hgb Potassium 4.0 Creatinine 0.79 Magnesium 1.5 L TSH - Imaging and Cardiology Chest Xray: report reviewed Stress Test: report reviewed Echo: report reviewed - EKG Interpretation EKG results cardiology: personally reviewed (ECG with SR, bigeminal PVCs.), other (Telemetry reviewed with average HR previous 12 hours noted to be 70, frequent PVCs. Intermitten bigeminy and trigeminy.) Consult Discharge Plan - Plan Instructions: Diabetes Mellitus Type 2 in Adults (DC) Referrals: Blanquita Mckeon CNP [Primary Care Provider] - 05/27/17 10:00 am <Gwendolyn Gonzalez - Last Filed: 05/07/17 17:20> Date of Encounter: 05/07/17 - Attending Attestation I examined this patient and my medical decision-making was reviewed with the [facility]. I agree with the documented findings, disposition and treatment plan as described. Ms. Gomez reports a known history of irregular heartbeat. She denies chest pain. EKG is without ischemic findings. Echo demonstrates preserved LV systolic function. Previous stress testing in 2015 was negative for ischemia or infarct. Recommend stopping karol/hctz to allow blood pressure room to increase beta galdino. Consider addition of low-dose aspirin. Magnesium has been replaced but continues to be low - recommend considering outpatient nephrology evaluation. For now, can consider magnesium supplementation. Recommend outpatient cardiology follow-up. Assessment and Plan Discussion w patient/family: The assessment and plan as outlined above was discussed with the patient and/or family members who expressed understanding and agreement. All questions were answered. Thank you for involving us in the care of your patient. Please call with any questions. History of Present Illness History of present illness: Ms. Gomez is a 57 year old female All Systems Review: A 10-system review of systems was performed and is negative for pertinent findings except as documented above in the HPI. Physical Examination Vital Signs, Last 4 Hours Temp Pulse Resp BP Pulse Ox 05/07/17 16:05 16 97 05/07/17 14:43 98.3 F 84 14 129/47 91 Results 05/07/17 09:52 05/07/17 09:52 Lab Results 05/07/17 05/07/17 09:52 09:52 WBC 6.6 Hgb 12.5 Hct 37.1 Plt Count 197 Sodium 137 Potassium 4.0 Chloride 102 Carbon Dioxide 28 BUN 13 Creatinine 0.79 Glucose 197 H Calcium 8.8 Magnesium 1.5 L
[2017-05-07 14:47] VITALS: BP 129/47
--- NOTE | 2017-05-07 16:49 | Discharge Summary ---
Date of Encounter: 05/07/17 Time of Encounter: 11:00 - Discharge Diagnosis (1) Bigeminy Priority: Primary Status: Acute (2) Hypomagnesemia Priority: Secondary Status: Acute - Discharge Medications Home Medications: Albuterol Sulfate [Proair Hfa] 2 puff IH Q4H PRN 05/05/17 [History] Aspirin Enteric Coated [Aspirin EC] 325 mg PO DAILY 05/05/17 [History] Celecoxib [Celebrex] 200 mg PO DAILY 05/05/17 [History] Cholecalciferol (D-3) [Vitamin D] 5,000 unit PO DAILY 05/05/17 [History] Dicyclomine [Bentyl] 20 mg PO QID 05/05/17 [History] Escitalopram [Lexapro] 10 mg PO DAILY 05/05/17 [History] Esomeprazole Magnesium [Nexium] 40 mg PO DAILY 05/05/17 [History] Estradiol [Estrace] 1 appl VG AD 05/05/17 [History] Famotidine [Heartburn Prevention] 20 mg PO HS 05/05/17 [History] Furosemide [Lasix] 20 mg PO DAILY 05/05/17 [History] Gabapentin [Neurontin] 800 mg PO QID 05/05/17 [History] Liraglutide [Victoza 2-Sky] 1.2 mg SQ DAILY 05/05/17 [History] Loratadine [Claritin] 10 mg PO DAILY 05/05/17 [History] Melatonin 5 mg PO HS 05/05/17 [History] Metformin HCl [Metformin HCl ER] 1,000 mg PO BID 05/05/17 [History] Metoprolol [Lopressor] 50 mg PO BID 05/05/17 [History] Oxycodone HCl/Acetaminophen [Percocet 7.5-325 mg Tablet] 1 each PO Q8H PRN 05/05 [History] Oxygen 2 l NS AD 05/05/17 [History] Rosuvastatin [Crestor] 20 mg PO HS 05/05/17 [History] Trospium Chloride 20 mg PO BID 05/05/17 [History] Umeclidinium Brm/Vilanterol Tr [Anoro Ellipta 62.5-25 Mcg INH] 1 each IH DAILY 05/05/17 [History] Allergies/Adverse Reactions: 3 Allergy/AdvReac Type Severity Reaction Status Date / Time Latex, Natural Rubber Allergy Rash Verified 10/29/16 14:44 metronidazole [From Flagyl] Allergy Rash Verified 05/05/17 19:54 vancomycin Allergy Swelling Verified 05/05/17 19:54 of the Eye Zolpidem [From Ambien] Allergy Hives Verified 10/29/16 14:44 Procedures/tests Complete & Pending: Procedures Performed prior 72 hours Category Date Time Status EV limited echocardiogram Routine Y 05/05/17 23:56 Completed Date of admission: 05/05/17 23:41 Primary care physician: Blanquita Mckeon CNP Consults: 05/06/17 15:12 Consult to Cardiology [CONS] Routine Comment: Consulting Provider: Cardiology [facility] Reason for Consult: patient is bigmeny and trigmeny Call Completed: No - Patient Status Disposition: Home, Self-Care Condition: Fair - Discharge Instructions Follow Up With: Blanquita Mckeon CNP [Primary Care Provider] - 05/27/17 10:00 am Hospital course: Patient is a 57-year-old female with past medical history significant for diabetes who presented to the ER on 05/05/17 due to palpitations. Patient reported of drinking 1-2 soda beverages, no coffee, is tobacco user but has not smoked recently because of recent pneumonia. In the ER, Chest x-ray showed no acute process. EKG showed sinus rhythm with bigemini at normal rate without ST/T wave changes. She is already on metoprolol 50 mg BID at home for palpitations. She denies anxiety. Telemetry monitoring showed sinus with bigemini at 70 bpm. TSH checked and is within normal limits. Patient was admitted to the medical surgical floor for further evaluation. During patients hospital stay, cardiology was consulted with recommendations for echocardiogram which showed no acute findings. Patient was found to have hypomagnesemia which was replaced. Recommendations to titrate beta galdino as blood pressure will allow. Patient will follow up with cardiology as outpatient to monitor magnesium levels in addition to bigeminy. - Time Spent with Patient Total time spent providing and/or coordinating discharge services: Less than 30 minutes - Constitutional Vitals: Temp Pulse Resp BP Pulse Ox 98.3 F 84 14 129/47 91 05/07/17 14:43 05/07/17 14:43 05/07/17 14:43 05/07/17 14:43 05/07/17 14:43 General appearance: Present: A&O X 3, no acute distress - Respiratory Respiratory exam: Present: CTAB. Absent: accessory muscle use, rales, rhonchi, wheezes - Cardiovascular Cardiovascular exam: Present: irregular rhythm
== END 2017-05-07 17:05 | disposition home or self-care (01) | DRG 316 ==
LOC: 2NENU 18:33 → EMEROO 18:33 → 2NENU 21:27 → SUATTDRO 23:41
PROVIDERS: ADMIT Student in an Organized Health Care Education/Training Program; ATTEND Hospitalist

== ENCOUNTER 2019-06-01 06:12 | Inpatient (IN) ==
[2019-06-01] MEDS ORDERED: *HR* Propofol 200 MG/20 ML VIAL IVP ONE (06:39)
[2019-06-01] MEDS ORDERED: Ondansetron 4 MG/2 ML VIAL ONE ×2 (06:40→11:00)
[2019-06-01] MEDS ORDERED: Lidocaine -MPF 2% 2 ML VIAL ONE ×2 (06:40→11:06)
[2019-06-01] MEDS ORDERED: *HR* Rocuronium Bromide 50 MG/5 ML VIAL ONE (06:40)
[2019-06-01] MEDS ORDERED: *HR* Midazolam HCl 2 MG/2 ML VIAL ONE (06:43)
[2019-06-01] MEDS ORDERED: *HR* FentaNYL (PF) 100 MCG/2 ML VIAL ONE (06:43)
[2019-06-01] MEDS ORDERED: CeFAZolin Syr 2,000MG/20 ML 2,000 MG/20 ML SYRINGE IVPB ONE (06:46)
[2019-06-01] MEDS ORDERED: Albuterol 2.5 MG/3 ML NEBULIZER IH PRN (06:46)
[2019-06-01] MEDS ORDERED: *HR* Promethazine 25 MG/ML VIAL IVP PRN (06:55)
[2019-06-01] MEDS ORDERED: *HR* HYDROmorphone (PF) 1 MG/ML SYRINGE IVP PRN (06:55)
[2019-06-01] MEDS ORDERED: Ondansetron 4 MG/2 ML VIAL IVP PRN ×2 (06:55→13:52)
[2019-06-01] MEDS ORDERED: *HR* Labetalol 20 MG/4 ML SYRINGE IVP PRN ×2 (06:55→13:52)
[2019-06-01] MEDS ORDERED: Gabapentin 300 MG CAPSULE PO ONE (06:55)
[2019-06-01] MEDS ORDERED: *HR* OxyCODONE Immed Rel 5 MG TABLET PO PRN ×2 (06:55→13:52)
[2019-06-01] MEDS ORDERED: Ringers Solution, Lactated 1,000 ML IVC SCH (07:00)
[2019-06-01] MEDS ORDERED: Heparin 1,000 UNITS/500 mL 1,000 ML ONE (07:15)
[2019-06-01] MEDS ORDERED: Isovue-300 150 ML INFUS..BTL ONE ×2 (07:16→07:19)
[2019-06-01] MEDS ORDERED: Isovue-300 50ML VIAL ONE (07:19)
[2019-06-01] MEDS ORDERED: ceFAZolin 1,000 MG, Sodium Chloride IRRigation 1,000 ML IR ONE (07:45)
[2019-06-01] MEDS ORDERED: Albumin Human 5% 25.0 GM/500 ML VIAL ONE (10:17)
[2019-06-01] MEDS ORDERED: Neostigmine Methylsulfate 3 MG/3 ML SYRINGE ONE (11:22)
[2019-06-01] MEDS ORDERED: Esmolol 100 MG/10 ML VIAL IVP ONE (12:12)
[2019-06-01] MEDS ORDERED: D5% in Water 1,000 ML IVC PRN (13:52)
[2019-06-01] MEDS ORDERED: *HR* Dextrose 50 % in Water (Syg) 50 ML SYRINGE IVP PRN (13:52)
[2019-06-01] MEDS ORDERED: Acetaminophen 325 MG TABLET PO PRN ×2 (13:52)
[2019-06-01] MEDS ORDERED: 0.9 % Sodium Chloride 1,000 ML IVC SCH (13:52)
[2019-06-01] MEDS ORDERED: Dextrose Gel 15 GM/37.5 ML TUBE PO PRN ×2 (13:52)
[2019-06-01] MEDS ORDERED: *HR* HYDROcodone/Acet 5/325 mg TABLET PO PRN (13:52)
[2019-06-01] MEDS ORDERED: Naloxone 0.4 MG/ML INJ IVP PRN (13:52)
[2019-06-01] MEDS ORDERED: Ipratropium/Albuterol Neb 3 ML IH PRN (13:52)
[2019-06-01] MEDS: *HR* HYDROcodone/Acet 5/325 mg TABLET PO PRN (15:25)
[2019-06-01] MEDS: Gabapentin 400 MG CAPSULE PO SCH ×3 (15:26→20:51)
[2019-06-01] MEDS: Insulin LISPRO 300 UNITS/3 ML VIAL SQ SCH (16:57)
[2019-06-01] MEDS: *HR* Metoprolol 5 MG/5 ML VIAL IVP SCH ×2 (17:16→23:59)
[2019-06-01] MEDS: *HR* OxyCODONE Immed Rel 5 MG TABLET PO PRN (17:21)
[2019-06-01] MEDS: Magnesium Oxide 400 MG TABLET PO SCH (20:51)
[2019-06-01] MEDS ORDERED: Insulin LISPRO 300 UNITS/3 ML VIAL SQ SCH (21:00)
[2019-06-02] MEDS: *HR* HYDROcodone/Acet 5/325 mg TABLET PO PRN (00:02)
[2019-06-02 04:09] LABS: Basophils % 0.3 %; Hematocrit 34.4 % (35.3-44.9); Hemoglobin 10.7 g/dL (11.5-15.4); Immature Granulocytes % 0.3 % (0-4); Lymphocytes # 1.7 K/mcL (0.6-4.6); Lymphocytes % 15.5 %; Mean Corpuscular HGB Conc 31.1 g/dL (31.6-35.5); Mean Corpuscular Hemoglobin 28.2 pg (28.0-33.3); Mean Corpuscular Volume 90.5 fL (83.0-100.0); Mean Platelet Volume 9.9 fL (9.4-12.4); Monocytes # 0.7 K/mcL (0.0-1.3); Monocytes % 6.1 %; Neutrophils # 8.3 K/mcL (1.6-8.9); Platelet Count 310 K/mcL (140-400); Red Cell Distribution Width 13.9 % (11.5-14.5); Segmented Neutrophils % 77.8 %; White Blood Count 10.7 K/mcL (4.3-11.1)
[2019-06-02 04:17] LABS: BUN/Creatinine Ratio 16 (6-26); Blood Urea Nitrogen 12 mg/dL (6-20); Calcium 8.9 mg/dL (8.6-10.3); Carbon Dioxide 27 mEq/L (23-29); Chloride 101 mEq/L (98-107); Glucose 130 mg/dL (70-105); Osmolality,Calculated 282 (280-300); Potassium 4.1 mEq/L (3.5-5.1); Sodium 135 mEq/L (136-145); eGFR For African Americans > 60 (> 60); eGFR For Non-African Americans > 60 (> 60)
[2019-06-02] MEDS: *HR* OxyCODONE Immed Rel 5 MG TABLET PO PRN (04:44)
[2019-06-02] MEDS ORDERED: *HR* Heparin 5,000 UNIT/ML VIAL SQ SCH ×2 (06:00)
[2019-06-02] MEDS: *HR* Metoprolol 5 MG/5 ML VIAL IVP SCH (06:25)
[2019-06-02] MEDS: Insulin LISPRO 300 UNITS/3 ML VIAL SQ SCH (08:20)
[2019-06-02] MEDS: Magnesium Oxide 400 MG TABLET PO SCH (08:22)
[2019-06-02] MEDS: Gabapentin 400 MG CAPSULE PO SCH (08:22)
[2019-06-02] MEDS ORDERED: Diltiazem CD (24hr) 180 MG CAPSULE PO SCH (09:00)
[2019-06-02] MEDS ORDERED: Famotidine 20 MG TABLET PO SCH (09:00)
[2019-06-02] MEDS ORDERED: Furosemide 40 MG TABLET PO SCH (09:00)
[2019-06-02 09:41] VITALS: BP 114/70
== END 2019-06-02 10:11 | disposition home or self-care (01) | DRG 271 ==
LOC: SAMDAY 06:12 → 2NNU 13:42
PROVIDERS: ADMIT Surgery; ATTEND Surgery